=== PATIENT | male | born 1990 | race Two or more races ===

== ENCOUNTER → 2024-08-22 | Outpatient (CLI) | payer OTHER, SELFPAY ==
[2024-08-22 11:43] LABS: % Variance 3 %; % Variance Motility 20 %; Count Side 1 7; Count Side 2 7; Motl CLS 1 50; Motl CLS 2 40; Room Temperature 24 (20-27C (Area)); Sperm Count 7 Million (20-50); Sperm Motility 45 % (>=50)
== END | disposition home or self-care (01) ==
PROVIDERS: Referring Provider Surgery; Visit Provider Surgery
DX: E86.1 Hypovolemia (principal)
CPT/HCPCS: 89310

== ENCOUNTER → 2024-09-22 | Outpatient (CLI) | payer OTHER, SELFPAY ==
--- NOTE | 2024-09-22 10:00 | XR_ITS ---
Examination: MRI lumbar spine without contrast Date and time of exam: September 22, 2024 1018 hours INDICATIONS: Lower back pain radiating down both legs for years Technique: Multiple MRI axial and sagittal sections lumbar spine. Sagittal T2-weighted images, TR 3500, TE 118 T1 weighted transverse sections, TR 688 T8.5, T2-weighted sagittal sections T1 weighted sagittal sections TR 621, TE 30 T2 axial sections, TR 4, 190, TE 84. Findings: Satisfactory alignment lumbar vertebral bodies No lumbar fracture No spondylolisthesis L5-S1 5 mm central lumbar disc bulge contiguous with the left S1 nerve root and extending to the bilateral foraminal regions with mild bilateral L5 ganglionic compression L4-L5 partially extruded 9 mm right paracentral subarticular disc, indenting the ventral margin thecal sac and producing mild right L4 ganglionic compression L3-L4 3 mm right paracentral disc bulge More cephalad levels unremarkable IMPRESSION: L5-S1 5 mm central lumbar disc bulge contiguous with the left S1 nerve root and producing mild bilateral L5 ganglionic compression L4-L5 large, 9 mm, right paracentral subarticular disc, indenting the ventral margin thecal sac on the right and producing mild right L4 ganglionic compression
== END | disposition home or self-care (01) ==
LOC: SMRI 09:42
PROVIDERS: PCP Family Medicine; Referring Provider Family Medicine; Visit Provider Family Medicine
DX: G95.20 Unspecified cord compression (principal); M54.50 Low back pain, unspecified
CPT/HCPCS: 72148

== ENCOUNTER → 2025-01-13 | Outpatient (CLI) | payer OTHER, BC, SELFPAY ==
[2025-01-13 12:42] LABS: Count Side 1 12
[2025-01-13 12:43] LABS: % Variance 14 %; % Variance Motility 17 %; Count Side 2 14; Motl CLS 1 60; Motl CLS 2 50; Room Temperature 24 (20-27C (Area)); Sperm Count 13 Million (20-50); Sperm Motility 55 % (>=50)
== END | disposition home or self-care (01) ==
LOC: COPL 10:31
PROVIDERS: PCP Family Medicine; Referring Provider Surgery; Visit Provider Surgery
DX: I86.1 Scrotal varices (principal)
CPT/HCPCS: 89310